=== PATIENT | female | born 1995 | race Hispanic/Latino ===

== ENCOUNTER → 2022-06-15 13:56 | Outpatient (CLI) | payer OTHER, SELFPAY ==
[2022-06-15 20:52] LABS: Urine N gonorrhoeae NOT DETECTED
[2022-06-15 20:58] LABS: Urine Chlamydia NOT DETECTED
== END ==
PROVIDERS: Visit Provider Obstetrics & Gynecology
DX: Z34.02 Encounter for supervision of normal first pregnancy, second trimester (principal); Z3A.27 27 weeks gestation of pregnancy
CPT/HCPCS: 87491; 87591

== ENCOUNTER → 2022-06-15 14:41 | Outpatient (CLI) | payer OTHER, SELFPAY ==
[2022-06-15 16:34] LABS: Hematocrit 35.2 % (36-46)
[2022-06-15 17:25] LABS: GTT (PREG) 1 Hour PP 50gm Dose 89 mg/dL (76-139)
== END ==
PROVIDERS: Referring Provider Obstetrics & Gynecology; Visit Provider Obstetrics & Gynecology
DX: Z34.02 Encounter for supervision of normal first pregnancy, second trimester (principal); Z3A.26 26 weeks gestation of pregnancy
CPT/HCPCS: 36415; 82950; 85014; 85018; 87491; 87591

== ENCOUNTER 2022-07-17 06:08 | Observation (INO) | payer OTHER, SELFPAY ==
--- NOTE | 2022-07-17 06:50 | P.HPOB_ITS ---
OB HPI Date/Time Date of admission: 07/17/22 Date Patient Seen: 07/17/22 Time Patient Seen: 06:50 History of Present Condition Chief complaint: labor BAO Calculator Estimated Delivery Date Method Current WG Current Estimate 09/14/22 Ultrasound #1 31w 4d : 1 Para: 0 care: limited care, initiated at week # (24), number of visits (3) and pounds weight gain (44) Dating criteria OB: based on 2nd trimester US only Ultrasounds: normal mid trimester US Obstetrical complications: gestational hypertension (vs chronic hypertension) Medical complications OB: none Preadmission Labs Last OB Lab Results: Hematocrit 35.2 % (36-46) L 06/15/22 15:50 Hemoglobin 12.0 g/dL (12.0-16.0) 06/15/22 15:50 Glucose 1 Hour 89 mg/dL (76-139) 06/15/22 15:50 Group B Streptococcus (PCR) Pending 07/17/22 07:35 -: Chlamydia screen: negative and Gonorrhea screen: negative -: PAP smear: Normal (05/22) Evaluation Evaluation Baseline heart rate: 150 Variability: Average (6-10) monitor accelerations: Present Monitor Decelerations: Absent Contraction Frequency (minutes): 0 Category of Tracing: Appropriate for gestational age Non-invasive Membranes Rupture Test: positive PFSH Medical History (Updated 06/18/22 @ 08:24 by Kodak Brooks MD) ADHD COVID-19 Surgical History (Updated 06/14/22 @ 14:39 by Dahiana Kendrick RN) H/O lumbar discectomy [place] teeth extracted Family History (Updated 06/14/22 @ 14:40 by Dahiana Kendrick RN) Grandmother Diabetes mellitus Hypertension Stroke Family/Other Hypertension Social History marital status: unmarried,single number of children: 0 household members: friend(s) lives independently: Yes housing: house pets and animals: Yes (1 dog, 1 cat, aware of toxo precautions) education level: high school 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) current occupational exposures/hazards: Yes (removed from Hazmat since Dx) special karyn needs: No travel history: recent ([place]) seatbelt use: always water heater temp set < 120 deg: Yes working smoke detector in home: Yes fire extinguisher in home: Yes carbon monox detector in home: Yes firearms in home: No do you feel safe at home: Yes Smoking Status: Former smoker (occasional smoker/vaping off and on for years) second hand exposure: Yes (roommate vapes) alcohol intake: former (occasionally prior to learning of ) substance use type: does not use during the past year weight has: decreased > 10 lbs (unintentional, inadequate diet) well-balanced diet: about half the time daily servings fruits/ve-4 caffeine: Yes (aware of 200mg limit, cutting down since Dx) Type(s) of exercise: walking additional social history: Pt was very overwhelmed during her appointment at [facility] when she was initially asked whether she intended to keep this baby or not after it is born. She has since had some time to assimilate this information. She is unsure whether the father will be involved or not, but has decided that she certainly will be raising it and she is already talking to her family and to [employer] [place] resources for active duty single parents as it is her intention to remain in the [employer] for a full 20 year career. Meds Home Medications and Allergies Home Medications Medication Instructions Recorded Confirmed Type dextroamphetamine-amphetamine ER 20 mg PO DAILY 06/14/22 07/05/22 History 20 mg 24hr capsule,extend release (Adderall XR) prenat.vits,georges,awo-rlcl-atiod 1 tab PO DAILY 06/14/22 07/05/22 History Allergies Allergy/AdvReac Type Severity Reaction Status Date / Time No Known Drug Allergies Allergy Unverified 07/05/22 09:05 OB Exam Narrative Exam Narrative: Generally: Patient lying in bed, no acute distress Lungs: Clear to auscultation bilaterally Cardiovascular: Regular rate and rhythm Fundal height: 30 cm Extremities: Trace edema Bedside ultrasound: Vertex presentation Objective Labs Result Diagrams: 07/17/22 07:40 Assessment and Plan Assessment and Plan Assessment and Plan narrative: Assessment: 27-year-old 1 para 0 at 31-,4/7 weeks gestation based on a 24 week ultrasound , premature rupture of membranes Chronic hypertension vs Gestational hypertension, no meds Late/Limited care Plan: Betamethasone 12 mg Azithromycin 1000 mg p.o. Ampicillin 2 g IV Magnesium sulfate 4 g IV load, 1 g maintenance COVID test done Group B strep swab obtained Time Spent with Patient Total time spent with greater than 50% in coordination of care (as documented) at patient's floor/unit and/or counseling patient:: Greater than 35 minutes
[2022-07-17] MEDS: BETAMETHASONE 30 MG/5 ML MDV 12 MG IM (06:54)
[2022-07-17] MEDS: MAGNESIUM SULFATE 4 GM/100 ML PIGGYBACK IV (07:43)
[2022-07-17] MEDS: AZITHROMYCIN 250 MG TABLET 1000 MG PO (07:45)
[2022-07-17 07:54] LABS: COVID19 -Nasal RAPID Negative (Negative)
[2022-07-17 08:21] LABS: Add Manual Diff / Slide Review NO; Basophils Absolute Auto 0 /uL (0-100); Basophils Percent Auto 0.3 % (0-2); Eosinophils Absolute Auto 100 /uL (0-450); Eosinophils Percent Auto 0.7 % (2-4); Hematocrit 35.4 % (36-46); Hemoglobin 11.9 g/dL (12.0-16.0); Lymphocytes Absolute Auto 1600 /uL (1100-4500); Lymphocytes Percent Auto 15.1 % (25-40); Mean Corpuscular HGB Conc 33.5 % (30-36); Mean Corpuscular Hemoglobin 30.9 PG (26-34); Mean Corpuscular Volume 92.3 fL (80-100); Monocytes Absolute Auto 900 /uL (0-900); Monocytes Percent Auto 8.4 % (3-14); Neutrophils Absolute Auto 8100 /uL (1500-7000); Neutrophils Percent Auto 75.5 % (50-75); Platelet Count 263 X10^3/uL (150-400); Red Blood Cell Count 3.84 X10^6/uL (4.0-5.2); Red Cell Distribution Width 13.4 % (11.6-14.8); White Blood Cell Count 10.8 X10^3/uL (4.5-11.0)
[2022-07-17] MEDS: MAGNESIUM SULFATE 20 GM/500 ML IV.SOLN IV (08:39)
[2022-07-17] MEDS: AMPICILLIN 2,000 MG in SODIUM CHLORIDE 0.9% 100 ML 200 MG IV (08:45)
[2022-07-17 10:04] LABS: Strep Grp B PCR NEG for Grp B Strep
== END 2022-07-17 09:25 | disposition short-term general hospital (02) ==
PROVIDERS: Admitting Provider Obstetrics & Gynecology; Referring Provider Obstetrics & Gynecology; Visit Provider Obstetrics & Gynecology
DX: O42.913 Preterm premature rupture of membranes, unspecified as to length of time between rupture and onset of labor, third trimester (principal); O16.3 Unspecified maternal hypertension, third trimester; Z3A.31 31 weeks gestation of pregnancy; Z20.822 Contact with and (suspected) exposure to COVID-19
CPT/HCPCS: 59025; 59050; 76815; 84112; 85025; 87081; 87635; 87653; 96360; 96372; 99234; C9803; G0378; G0379; J0290; J0702; J3475

== ENCOUNTER → 2024-04-13 10:47 | Outpatient (CLI) | payer OTHER, SELFPAY ==
--- NOTE | 2024-04-13 | DI.RAD.S_ITS ---
PROCEDURE: FL JOINT INJECTION MEDIUM LT INDICATIONS: PAIN IN LEFT SHOULDER/POSS SLAP TEAR COMPARISON: None. TECHNIQUE: The indications, alternatives, benefits, risks, and complications of the procedure were explained to the patient. Written informed consent was obtained and placed in the chart. The patient was placed in an appropriate position on the fluoroscopy table, and a site was chosen for percutaneous access under fluoroscopic guidance. The site was prepped and draped in a sterile fashion. Local anesthetic was administered using a 1% lidocaine solution. A hypodermic or spinal needle was then used to access the symptomatic joint. Intra-articular location of the needle tip was confirmed by injecting a small amount of contrast, followed by steroid administration. The needle was then withdrawn, and a bandage applied to the puncture site. FINDINGS: Joint injected: Left shoulder Medications injected: 1 mL of 40 mg/mL Kenalog and 3 mL of 0.5% Ropivacaine mixture. Patient's pain before injection: 4-5 out of 10. Patient's pain after injection: 0 out of 10. Complications: None. IMPRESSION: Successful fluoroscopically guided administration of steroid and anaesthetic solution into the left shoulder joint. Dictated by: Ben Kirk M.D. on 04/13/2024 at 16:24 Approved by: Ben Kirk M.D. on 04/13/2024 at 16:24
[2024-04-13] MEDS: ROPIVACAINE 0.5% PF 5 MG/ML 20ML VIAL 20 ML INJ (13:13)
[2024-04-13] MEDS: TRIAMCINOLONE 40 MG/ML VIAL INTRA-ARTI (13:13)
[2024-04-13] MEDS: LIDOCAINE 1% 20 ML INJ (13:13)
== END ==
LOC: RAD 10:48
PROVIDERS: Referring Provider Orthopaedic Surgery; Visit Provider Orthopaedic Surgery
DX: M25.512 Pain in left shoulder (principal)
CPT/HCPCS: 20605; 77002